=== PATIENT | female | born 1960 | race Caucasian/White ===

== ENCOUNTER → 2021-06-02 | Outpatient (CLI) | payer OTHER ==
--- NOTE | 2021-06-02 14:42 | RAD ---
EXAM: Chest, 2 views. HISTORY: Cough. COMPARISON: None. FINDINGS: 2 views of the chest are obtained. There is a right middle lobe interstitial infiltrate or scarring. There is no pleural effusion or pneumothorax. The heart is normal in size. IMPRESSION: Right middle lobe interstitial infiltrate or scarring. Electronically signed by: Fransisca Perry MD (06/02/2021 2:40 PM) [id number]
== END ==
LOC: RAD 14:10
PROVIDERS: ATTEND Physician Assistant
DX: R05.9 Cough, unspecified (principal)
CPT/HCPCS: 71046